=== PATIENT | male | born 1935 | race Caucasian/White ===

== ENCOUNTER → 2019-11-03 | Outpatient (CLI) | payer OTHER ==
[~2019-11-03] MED LIST: ASA81BEC PO; CARVEDILOL25 MG PO; FLONASE 0.05%50 MCG NASAL; IPRAT-ALBUT 0.5-3 ML INH; LIPITOR40 MG PO; LOSARTAN POTAS100 MG PO; MUCINEX1200 MG PO; NORVASC5 M1 PO; PROSCAR 5MG TABL5 M1 PO; PROTONIX40 M2 PO; TIROSINT50 MCG PO; VITAMIN B COMP1 EACH PO
== END ==
LOC: LAB 09:09
PROVIDERS: ATTEND Ophthalmology
DX: Z01.812 Encounter for preprocedural laboratory examination (principal); Z20.828 Contact with and (suspected) exposure to other viral communicable diseases

== ENCOUNTER 2019-11-06 06:50 | Day surgery (SDC) | payer OTHER ==
[~2019-11-06] VITALS: Ht 170.2 cm; Wt 83.5 kg
--- NOTE | ~2019-11-06 | O ---
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 PROCEDURE: Bilateral lower lid ectropion repair with transconjunctival left lower lid and cheek lift. SURGEON: Peter Sampson MD REVERSE LOGISTICS ANALYST: None. ANESTHESIA: MAC. COMPLICATIONS: None. 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 He presents today for a bilateral lower lid ectropion repair combined with a transconjunctival left lower lid and cheek lift in order to attempt to establish good lid globe apposition and improve his corneal surface vision and reduce his risk of progressive loss of vision. Informed consent was obtained to include, but not limited to the potential risk for loss of vision, bleeding, infection, failure to improve the problem, and the potential need for further surgery or treatment. DESCRIPTION OF PROCEDURE: The patient was taken to the operating room where 2% Xylocaine with epinephrine mixed with equal parts of 0.75% Marcaine with Wydase was administered transconjunctivally and transcutaneously to each lower lid and lateral canthus. In addition, on the left side, the left cheek and the left [address] [address] OPERATIVE REPORT Name: LAZARO MONROY Room #: DEP [facility].#: [id number] Admission: 11/06/19 Attend Phys: Peter Sampson MD Discharge: 11/06/19 Date of : 37 Report #: [id number] infratemporal fossa were anesthetized. The patient was subsequently prepped and draped in the usual sterile fashion. The left lateral canthus was then clamped with a Lorenzo clamp. A sharp canthotomy and cantholysis was then performed. Hemostasis was once again re-achieved. A tarsal strip was then prepared laterally removing the lash bearing portion of the redundant lid margin and the redundant tarsal plate. Hemostasis was achieved once more. Attention was then turned away from the ectropion repair and towards the lower lid and cheek lift. A transconjunctival incision was then made below the inferior border of the tarsal plate across the width of the lid. The dissection was then carried down primarily sharply into the premalar space of the lower lid and cheek. Hemostasis was re-achieved. The lower lid and cheek was then elevated and resuspended with interrupted mattress double armed 5-0 chromic sutures. The lower lid and cheek elevated well. Attention was then returned to the ectropion repair. The tarsal strip previously prepared was attached to the internal portion of the lateral orbital tubercle with interrupted 5-0 Prolene sutures. The subcutaneous structures and the skin were then closed with interrupted 6-0 plain gut sutures. The right lateral canthus was then clamped with a Lorenzo clamp. A sharp canthotomy and cantholysis was then performed. Hemostasis was then re-achieved with diligent pinpoint monopolar cautery. A tarsal strip was then prepared laterally removing the lash bearing portion of the redundant lid margin and the redundant tarsal plate. Hemostasis was once more re-achieved. The tarsal strip was then reattached to the internal portion of the lateral orbital tubercle with interrupted 5-0 Prolene sutures. Subcutaneous structures and the skin were then closed with interrupted 6-0 plain gut sutures. The wounds were then cleaned and dressed with erythromycin ophthalmic ointment. The patient was then transferred to the recovery room having tolerated the procedure well with no operative or anesthesia complications being noted. By: [id number] Peter Sampson MD /nt
[2019-11-06 08:37] VITALS: BP 151/74
== END 2019-11-06 10:35 | disposition home or self-care (01) ==
LOC: OR 06:50 → TBA 06:51 → OR 08:17
PROVIDERS: ATTEND Ophthalmology
DX: H02.105 Unspecified ectropion of left lower eyelid (principal); H02.102 Unspecified ectropion of right lower eyelid; H02.535 Eyelid retraction left lower eyelid; H18.9 Unspecified disorder of cornea; I10 Essential (primary) hypertension; E03.9 Hypothyroidism, unspecified; J43.9 Emphysema, unspecified; E78.00 Pure hypercholesterolemia, unspecified; K21.9 Gastro-esophageal reflux disease without esophagitis; Z98.890 Other specified postprocedural states; Z85.118 Personal history of other malignant neoplasm of bronchus and lung; Z79.899 Other long term (current) drug therapy; Z87.891 Personal history of nicotine dependence
CPT/HCPCS: 50010; 50101; 50386; 50398; 51636; 56527; 56531; 62110; 62850; 70005